=== PATIENT | female | born 1975 | race Caucasian/White ===

== ENCOUNTER → 2016-05-20 | Outpatient (CLI) | payer MEDICARE ==
[~2016-05-20] MED LIST: ACET-654 PO; ACET500C PO; BIOT5TAB3 PO; BUSP10TA PO; CALCTAB37 PO; DULC10SU2 PR; ENEMENE6 PR; GARL350T PO; LOVE1INJ SC; MILKSUS PO; MIRA3350 PO; NICO2GUM8 PO; NUPE1OIN2 TOP; OXYC10TA12 PO; OXYIR PO; PAXI40TA2 PO; PRIL20CA PO; VITA200015 PO; VITAPRTA PO; VITATAB11 PO; XANA0.5T PO; [UNRECOGNIZED DRUG - CODE] PR
[2016-05-20 13:17] LABS: BASO % 0.5 % (0.0-1.0); EOS # 0.1 K/mm3 (0.0-0.50); EOS % 1.3 % (0.0-3.0); LARGE UNSTAINED CELL # 0.1 K/mm3 (0.0-0.4); LARGE UNSTAINED CELL % 1.3 % (0.0-4.0); LYMPH # 1.8 K/mm3 (1.5-4.5); MEAN CORPUSCULAR HEMOGLOBIN 30.9 pg (27.0-33.0); MEAN CORPUSCULAR HGB CONC 33.1 g/dl (32.0-36.5); MEAN CORPUSCULAR VOLUME 93.5 fl (80.0-96.0); MONO # 0.3 K/mm3 (0.0-0.8); MONO % 4.4 % (0.0-5.0); NEUTROPHILS # 3.9 K/mm3 (1.8-7.7); NEUTROPHILS % 63.5 % (36.0-66.0); PLATELET COUNT, AUTOMATED 296 k/mm3 (150-450); RED CELL DISTRIBUTION WIDTH 11.9 % (11.5-14.5); WHITE BLOOD COUNT 6.2 K/mm3 (4.0-10.0)
[2016-05-20 14:22] LABS: ALBUMIN 3.7 GM/DL (3.2-5.2); ALBUMIN/GLOBULIN RATIO 1.03 (1.00-1.93); ALKALINE PHOSPHATASE 104 U/L (45-117); ALT/SGPT 42 U/L (12-78); ANION GAP 8 MEQ/L (8-16); AST/SGOT 16 U/L (15-37); BILIRUBIN,TOTAL 0.3 MG/DL (0.2-1.0); BLOOD UREA NITROGEN 11 MG/DL (7-18); CALCIUM LEVEL 9.1 MG/DL (8.5-10.1); CARBON DIOXIDE LEVEL 29 MEQ/L (21-32); CHLORIDE LEVEL 106 MEQ/L (98-107); CHOLESTEROL LEVEL 185 MG/DL (<200); CREATININE FOR GFR 0.66 MG/DL (0.55-1.02); FREE T4 0.93 NG/DL (0.76-1.46); GLOMERULAR FILTRATION RATE > 60.0 (>60); GLUCOSE, FASTING 94 MG/DL (70-105); POTASSIUM SERUM 4.9 MEQ/L (3.5-5.1); SODIUM LEVEL 143 MEQ/L (136-145); TOTAL PROTEIN 7.3 GM/DL (6.4-8.2); TRIGLYCERIDES LEVEL 143 MG/DL (<150)
== END ==
LOC: M SMT 10:12
PROVIDERS: ATTEND Nurse Practitioner Family
DX: R00.2 Palpitations (principal); I10 Essential (primary) hypertension; Z13.220 Encounter for screening for lipoid disorders

== ENCOUNTER → 2018-03-16 | Outpatient (CLI) | payer MEDICARE ==
[2018-03-16 13:33] LABS: ALBUMIN 3.7 GM/DL (3.2-5.2); ALBUMIN/GLOBULIN RATIO 1.03 (1.00-1.93); ALKALINE PHOSPHATASE 92 U/L (45-117); ALT/SGPT 42 U/L (12-78); ANION GAP 9 MEQ/L (8-16); AST/SGOT 23 U/L (7-37); BILIRUBIN,TOTAL 0.4 MG/DL (0.2-1.0); BLOOD UREA NITROGEN 11 MG/DL (7-18); CALCIUM LEVEL 9.1 MG/DL (8.5-10.1); CARBON DIOXIDE LEVEL 26 MEQ/L (21-32); CHLORIDE LEVEL 103 MEQ/L (98-107); CHOLESTEROL LEVEL 197 MG/DL (<200); CHOLESTEROL RISK RATIO 3.862 (<5); CREATININE FOR GFR 0.63 MG/DL (0.55-1.30); FREE T3 2.5 PG/ML (2.2-4.0); FREE T4 0.92 NG/DL (0.76-1.46); GLOMERULAR FILTRATION RATE > 60.0 (>58); GLUCOSE, FASTING 108 MG/DL (70-100); HDL CHOLESTEROL 51 MG/DL (>40); IRON (FE) 152 UG/DL (50-170); LDL CHOLESTEROL 109 MG/DL (<100); NON-HDL-C 146 MG/DL; POTASSIUM SERUM 4.2 MEQ/L (3.5-5.1); SODIUM LEVEL 138 MEQ/L (136-145); TOTAL PROTEIN 7.3 GM/DL (6.4-8.2); TRIGLYCERIDES LEVEL 184 MG/DL (<150)
[2018-03-16 13:36] LABS: TOTAL 25(OH) VITAMIN D 33.2 NG/ML (30.0-100.0)
[2018-03-16 13:41] LABS: BASO % 0.3 % (0.0-1.0); EOS # 0.2 10^3/uL (0.0-0.50); EOS % 1.8 % (0.0-3.0); HEMATOCRIT 42.7 % (36.0-47.0); HEMOGLOBIN 13.9 g/dl (12.0-15.5); IMMATURE GRANULOCYTE % 0.7 % (0-3.0); LYMPH # 2.2 10^3/uL (1.5-4.5); LYMPH % 22.2 % (24.0-44.0); MEAN CORPUSCULAR HEMOGLOBIN 31.5 pg (27.0-33.0); MEAN CORPUSCULAR HGB CONC 32.6 g/dl (32.0-36.5); MEAN CORPUSCULAR VOLUME 96.8 fl (80.0-96.0); MONO # 0.6 10^3/uL (0.0-0.8); MONO % 5.6 % (0.0-5.0); NEUTROPHILS # 6.8 10^3/uL (1.8-7.7); NEUTROPHILS % 69.4 % (36.0-66.0); PLATELET COUNT, AUTOMATED 318 10^3/uL (150-450); RED BLOOD COUNT 4.41 10^6/uL (4.00-5.40); RED CELL DISTRIBUTION WIDTH 12.4 % (11.5-14.5); WHITE BLOOD COUNT 9.8 10^3/uL (4.0-10.0)
== END ==
LOC: M SMT 09:35
DX: I10 Essential (primary) hypertension (principal); E66.01 Morbid (severe) obesity due to excess calories; E55.9 Vitamin D deficiency, unspecified; Z13.220 Encounter for screening for lipoid disorders
CPT/HCPCS: 83540

== ENCOUNTER → 2018-08-17 | Outpatient (REF) | payer MEDICARE ==
[~2018-08-17] MED LIST changes: -ACET-654 PO; +ACET1TAB55 PO; -CALCTAB37 PO; +CALCTAB63 PO; +MILK120011 PO; -MILKSUS PO; +PAXI40TA10 PO; -PAXI40TA2 PO; -PRIL20CA PO; +PRIL20CA9 PO
[2018-08-19 14:14] LABS: HPV HYBRID CAPTURE II Negative (Negative)
== END ==
LOC: M LAB REF 17:25
PROVIDERS: ATTEND Specialist
DX: Z12.4 Encounter for screening for malignant neoplasm of cervix (principal)
CPT/HCPCS: 87624; G0123

== ENCOUNTER 2018-11-07 22:02 | Emergency (ER) | payer MEDICARE, MEDICAID ==
[~2018-11-07] VITALS: Ht 160 cm; Wt 154.6 kg
[2018-11-07 22:43] LABS: BASO % 0.2 % (0.0-1.0); EOS % 0.3 % (0.0-3.0); HEMATOCRIT 38.9 % (36.0-47.0); HEMOGLOBIN 12.9 g/dl (12.0-15.5); LYMPH # 0.7 10^3/uL (1.5-4.5); LYMPH % 6.8 % (24.0-44.0); MEAN CORPUSCULAR HEMOGLOBIN 30.6 pg (27.0-33.0); MEAN CORPUSCULAR HGB CONC 33.2 g/dl (32.0-36.5); MEAN CORPUSCULAR VOLUME 92.4 fl (80.0-96.0); MONO # 0.7 10^3/uL (0.0-0.8); MONO % 6.7 % (0.0-5.0); NEUTROPHILS # 8.8 10^3/uL (1.8-7.7); NEUTROPHILS % 85.3 % (36.0-66.0); PLATELET COUNT, AUTOMATED 243 10^3/uL (150-450); RED BLOOD COUNT 4.21 10^6/uL (4.00-5.40); WHITE BLOOD COUNT 10.3 10^3/uL (4.0-10.0)
[2018-11-07 22:47] LABS: APPEARANCE, URINE HAZY (CLEAR); BACTERIA, URINE AUTO 1+ (NEGATIVE); BILIRUBIN, URINE AUTO NEGATIVE (NEGATIVE); BLOOD, URINE BLOOD 2+ (NEGATIVE); COLOR, URINE YELLOW (YELLOW); GLUCOSE, URINE (UA) AUTO NEGATIVE (NEGATIVE); KETONE, URINE AUTO 1+ mg/dL (NEGATIVE); LEUKOCYTE ESTERASE, URINE AUTO 2+ (NEGATIVE); NITRITE, URINE AUTO POSITIVE (NEGATIVE); PROTEIN, URINE AUTO NEGATIVE (NEGATIVE); RBC, URINE AUTO 9 /HPF (0-3); SPECIFIC GRAVITY URINE AUTO 1.011 (1.002-1.035); SQUAMOUS EPITHELIAL CELL UR AU 2 /HPF (0-6); UROBILINOGEN, URINE AUTO 0.2 mg/dL (0.0-2.0); WBC, URINE AUTO 79 /HPF (0-3)
[2018-11-07 23:13] LABS: ALBUMIN 3.3 GM/DL (3.2-5.2); ALT/SGPT 28 U/L (12-78); BILIRUBIN,DIRECT 0.1 MG/DL (0.0-0.2); BILIRUBIN,TOTAL 0.4 MG/DL (0.2-1.0); BLOOD UREA NITROGEN 15 MG/DL (7-18); CALCIUM LEVEL 8.8 MG/DL (8.5-10.1); CARBON DIOXIDE LEVEL 24 MEQ/L (21-32); CHLORIDE LEVEL 103 MEQ/L (98-107); CREATININE FOR GFR 0.74 MG/DL (0.55-1.30); GLOMERULAR FILTRATION RATE > 60.0 (>58); GLUCOSE, FASTING 115 MG/DL (70-100); POTASSIUM SERUM 3.7 MEQ/L (3.5-5.1); SODIUM LEVEL 137 MEQ/L (136-145); TOTAL PROTEIN 7.4 GM/DL (6.4-8.2)
[2018-11-07] MEDS ORDERED: BACT800T5 PO (23:24)
[2018-11-07] MEDS ORDERED: BACTRIM 160MG/800MG DS TAB PO ONE (23:30)
[2018-11-07 23:45] VITALS: BP 150/89
== END 2018-11-07 23:43 | disposition home or self-care (01) ==
LOC: M ED 22:02
DX: N39.0 Urinary tract infection, site not specified (principal); D64.9 Anemia, unspecified; E66.01 Morbid (severe) obesity due to excess calories; F41.1 Generalized anxiety disorder; F32.9 Major depressive disorder, single episode, unspecified; Z88.1 Allergy status to other antibiotic agents; Z91.018 Allergy to other foods; Z98.84 Bariatric surgery status

== ENCOUNTER → 2018-12-09 | Outpatient (REF) | payer MEDICARE, MEDICAID ==
[~2018-12-09] MED LIST changes: +BACT800T5 PO
[2018-12-09 15:09] LABS: APPEARANCE, URINE CLEAR (CLEAR); BACTERIA, URINE AUTO NEGATIVE (NEGATIVE); BILIRUBIN, URINE AUTO NEGATIVE (NEGATIVE); BLOOD, URINE BLOOD NEGATIVE (NEGATIVE); COLOR, URINE YELLOW (YELLOW); GLUCOSE, URINE (UA) AUTO NEGATIVE (NEGATIVE); KETONE, URINE AUTO NEGATIVE (NEGATIVE); LEUKOCYTE ESTERASE, URINE AUTO NEGATIVE (NEGATIVE); NITRITE, URINE AUTO NEGATIVE (NEGATIVE); PROTEIN, URINE AUTO NEGATIVE (NEGATIVE); RBC, URINE AUTO 2 /HPF (0-3); SPECIFIC GRAVITY URINE AUTO 1.019 (1.002-1.035); SQUAMOUS EPITHELIAL CELL UR AU 2 /HPF (0-6); UROBILINOGEN, URINE AUTO 0.2 mg/dL (0.0-2.0); WBC, URINE AUTO 1 /HPF (0-3)
== END ==
LOC: M LAB REF 13:23
PROVIDERS: ATTEND Nurse Practitioner Family
DX: N39.0 Urinary tract infection, site not specified (principal)

== ENCOUNTER → 2019-01-14 | Outpatient (CLI) | payer MEDICARE, MEDICAID ==
--- NOTE | 2019-01-14 15:22 | REP ---
Left hip series: Two views. History: Hip pain. Findings: There is severe arthropathy affecting the left hip with axial joint space narrowing, marked hypertrophic spur formation and sclerosis on both sides of the joint. This arthropathy appears to be somewhat more pronounced than on the March 06, [address] study although direct comparison is difficult. Impression: Severe arthropathy affecting the left hip with marked joint space narrowing and osteophyte formation. Reactive sclerosis. Probably progressive since March 06, 2015. Electronically Signed by Orlando Woods MD 01/14/2019 04:05 P
--- NOTE | 2019-01-14 16:05 | REP ---
Lumbar spine series: Five views. History: Hip pain and back pain. Comparison study: November 03, 2014. Findings: Lumbar vertebral body heights are preserved. There is some straightening. There is a degenerative grade 1 4 mm spondylolisthesis at L4-5 due to degenerative disc and facet changes. There is no evidence of spondylolysis. Degenerative disc spurring and sclerosis are also noted and L3-4. There are mild discogenic spurring changes at the thoracolumbar junction and there appears to be mild wedging at T12 unchanged. The visualized sacrum and SI joints are unremarkable. Impression: Degenerative disc and osteoarthritic facet changes as noted above. Mild degenerative grade 1 4 mm L4-5 spondylolisthesis. This is new when compared with prior CT study of November 03, 2014. Electronically Signed by Orlando Woods MD 01/14/2019 03:57 P
== END ==
LOC: M SMT 11:24
PROVIDERS: ATTEND Family Medicine
DX: M25.752 Osteophyte, left hip (principal); M51.36 Other intervertebral disc degeneration, lumbar region; M25.78 Osteophyte, vertebrae

== ENCOUNTER → 2019-01-28 | Outpatient (REF) | payer MEDICARE, MEDICAID ==
[2019-01-28 21:26] LABS: APPEARANCE, URINE HAZY (CLEAR); BACTERIA, URINE AUTO 2+ (NEGATIVE); BILIRUBIN, URINE AUTO NEGATIVE (NEGATIVE); BLOOD, URINE BLOOD NEGATIVE (NEGATIVE); COLOR, URINE YELLOW (YELLOW); GLUCOSE, URINE (UA) AUTO NEGATIVE (NEGATIVE); KETONE, URINE AUTO NEGATIVE (NEGATIVE); LEUKOCYTE ESTERASE, URINE AUTO NEGATIVE (NEGATIVE); MUCUS, URINE SMALL (NEGATIVE); NITRITE, URINE AUTO NEGATIVE (NEGATIVE); PROTEIN, URINE AUTO NEGATIVE (NEGATIVE); RBC, URINE AUTO 1 /HPF (0-3); SPECIFIC GRAVITY URINE AUTO 1.017 (1.002-1.035); SQUAMOUS EPITHELIAL CELL UR AU 5 /HPF (0-6); UROBILINOGEN, URINE AUTO 0.2 mg/dL (0.0-2.0); WBC, URINE AUTO 5 /HPF (0-3)
== END ==
LOC: M LAB REF 09:19
PROVIDERS: ATTEND Physician Assistant
DX: N39.0 Urinary tract infection, site not specified (principal)

== ENCOUNTER 2019-03-17 22:50 | Inpatient (IN) | payer MEDICARE, MEDICAID ==
[~2019-03-17] VITALS: Ht 160 cm; Wt 154.0 kg
[2019-03-17] MEDS ORDERED: NS 1,000 ML IV ONE (23:00)
[2019-03-17] MEDS ORDERED: ACETAMINOPHEN 500 MG TAB PO ONE (23:00)
[2019-03-17] MEDS ORDERED: DULO1CAP6 PO (23:03)
[2019-03-17] MEDS ORDERED: OMEP-218 PO (23:03)
[2019-03-17 23:11] LABS: BASO % 0.3 % (0.0-1.0); EOS % 0.4 % (0.0-3.0); HEMATOCRIT 38.4 % (36.0-47.0); HEMOGLOBIN 12.7 g/dl (12.0-15.5); LYMPH # 0.9 10^3/uL (1.5-5.0); LYMPH % 13.5 % (24.0-44.0); MEAN CORPUSCULAR HEMOGLOBIN 29.8 pg (27.0-33.0); MEAN CORPUSCULAR HGB CONC 33.1 g/dl (32.0-36.5); MEAN CORPUSCULAR VOLUME 90.1 fl (80.0-96.0); MONO # 0.2 10^3/uL (0.0-0.8); MONO % 3.3 % (0.0-5.0); NEUTROPHILS # 5.7 10^3/uL (1.5-8.5); NEUTROPHILS % 82.1 % (36.0-66.0); PLATELET COUNT, AUTOMATED 248 10^3/uL (150-450); RED BLOOD COUNT 4.26 10^6/uL (4.00-5.40); WHITE BLOOD COUNT 6.9 10^3/uL (4.0-10.0)
[2019-03-17 23:33] LABS: ALBUMIN 3.2 GM/DL (3.2-5.2); ALT/SGPT 30 U/L (12-78); BILIRUBIN,TOTAL 0.4 MG/DL (0.2-1.0); BLOOD UREA NITROGEN 10 MG/DL (7-18); CALCIUM LEVEL 8.4 MG/DL (8.5-10.1); CARBON DIOXIDE LEVEL 23 MEQ/L (21-32); CHLORIDE LEVEL 102 MEQ/L (98-107); CREATININE FOR GFR 0.82 MG/DL (0.55-1.30); GLOMERULAR FILTRATION RATE > 60.0 (>58); GLUCOSE, FASTING 116 MG/DL (70-100); POTASSIUM SERUM 3.7 MEQ/L (3.5-5.1); SODIUM LEVEL 136 MEQ/L (136-145)
[2019-03-17 23:41] LABS: BILIRUBIN, URINE MANUAL OBSCURED (NEGATIVE); GLUCOSE, URINE (UA) MANUAL NEGATIVE (NEGATIVE); KETONE, URINE MANUAL 2+ mg/dL (NEGATIVE); UROBILINOGEN, URINE MANUAL OBSCURED mg/dl (NORMAL)
[2019-03-17 23:43] LABS: BACTERIA, URINE SMALL AMOUNT; RBC, URINE TNTC /hpf (0-3); SQUAMOUS EPITHELIAL CELL URINE SMALL AMOUNT /hpf (SMALL AMT)
[2019-03-17 23:44] LABS: HYALINE CAST, URINE NONE SEEN /lpf (0-1)
[2019-03-17 23:45] LABS: MUCUS, URINE SMALL AMOUNT (NEGATIVE)
[2019-03-18] MEDS ORDERED: cefTRIAXone SOD 1 GM in D5W MINI-BAG PLUS 50 ML IV ONE ×2
[2019-03-18 00:29] LABS: INFLUENZA A AMPLIFICATION NEGATIVE (NEGATIVE); INFLUENZA B AMPLIFICATION NEGATIVE (NEGATIVE)
[2019-03-18] MEDS ORDERED: KETOROLAC 30 MG/ML VIAL (J1885) IV PRN (00:30)
[2019-03-18] MEDS ORDERED: PRENTAB9 PO (00:38)
[2019-03-18 02:20] VITALS: BP 114/60
[2019-03-18] MEDS: NS 1,000 ML IV SCH ×2 (02:56→05:43)
[2019-03-18 06:00] VITALS: BP 112/60
[2019-03-18 07:00] LABS: HEMOGLOBIN 11.5 g/dl (12.0-15.5); MEAN CORPUSCULAR HEMOGLOBIN 29.8 pg (27.0-33.0); MEAN CORPUSCULAR HGB CONC 32.9 g/dl (32.0-36.5); MEAN CORPUSCULAR VOLUME 90.7 fl (80.0-96.0); PLATELET COUNT, AUTOMATED 234 10^3/uL (150-450); RED BLOOD COUNT 3.86 10^6/uL (4.00-5.40); WHITE BLOOD COUNT 6.1 10^3/uL (4.0-10.0)
[2019-03-18 07:19] LABS: BLOOD UREA NITROGEN 6 MG/DL (7-18); CARBON DIOXIDE LEVEL 22 MEQ/L (21-32); CHLORIDE LEVEL 111 MEQ/L (98-107); CREATININE FOR GFR 0.57 MG/DL (0.55-1.30); GLOMERULAR FILTRATION RATE > 60.0 (>58); GLUCOSE, FASTING 110 MG/DL (70-100); POTASSIUM SERUM 3.4 MEQ/L (3.5-5.1); SODIUM LEVEL 140 MEQ/L (136-145)
--- NOTE | 2019-03-18 07:54 | REP ---
Clinical: Fever . Comparison: 05/24/2013 . Technique: PA and lateral. Findings: The mediastinum and cardiac silhouette are normal. The lung cyr are clear and without acute consolidation, effusion, or pneumothorax. The skeletal structures are intact and normal. Impression: 1. No acute cardiopulmonary process. Electronically Signed by Gustabo Ash MD 03/18/2019 07:45 A
--- NOTE | 2019-03-18 08:02 | HPE ---
DATE OF ADMISSION: 03/18/2019 CHIEF COMPLAINT: Chills. HISTORY OF PRESENT ILLNESS: 43-year-old female with history of morbid obesity, BMI of 60, probable sleep apnea, gastric bypass surgery presents with history of malaise with no documented fever until 9:00 p.m. this evening when she came back home from trick or treating she complained of severe chills and rigors and vomiting, non-bilious, non-projectile, with urinary frequency. The patient denies any dysuria, any urgency, complains of frequency, she had a similar episode before when she was diagnosed with a urinary tract infection (UTI), at that time she was disoriented and not herself. She complains of pain in bilateral flank, decrease in appetite. Home temperature was 100. She called an ambulance and was found to have a fever of 103 and was brought in to the emergency room. White count was normal. Chest x-ray was negative. Urinalysis showed positive bacteria 20-30 WBCs, turbid in appearance, pH of 5. Hospitalist was called to admit for sepsis secondary to urinary tract infection. She was febrile at 103, pulse 113, respiratory 24. PAST MEDICAL HISTORY: Urinary tract infection (UTI), morbid obesity, BMI of 61, probable obstructive sleep apnea, Legg-Perthes disease. PAST SURGICAL HISTORY: Pin in the hip, dilatation and curettage (D C), gastric bypass, hip replacement. ALLERGIES: DEMEROL causing hives. HOME MEDICATIONS: - duloxetine 60 mg at bedtime - omeprazole 20 mg at bedtime - vitamin SOCIAL HISTORY: Previously smoked cigarettes, less than a half a pack per day for about 4-5 years, has not had any cigarettes in over 3 years. Rarely uses any alcohol. Lives with her and two children. Currently on disability, previously worked in [employer]. FAMILY HISTORY: Mother and father are alive in well, age 67. Mother had gastric bypass surgery. Father alive and well. She has one younger sister and one younger brother. Younger sister had an episode of vasovagal syncope. Younger brother had hypertension and borderline diabetes. REVIEW OF SYSTEMS: Per history of present illness, twelve point system otherwise negative. PHYSICAL EXAMINATION: Temperature 103, pulse 113, respiratory rate 24, blood pressure 133/67. GENERALLY: Patient is awake, alert, and oriented times three, answering questions appropriately. Pupils round and reactive, extraocular muscles are intact. Normocephalic, atraumatic. No cyanosis. No icterus or jaundice. Neck is supple, full of range motion. Dry mucous membranes. No supraclavicular lymphadenopathy or thyromegaly. No jugular venous distention. Lung are clear to auscultation. No wheezing, rales, or rhonchi. Heart S1, S2, sinus tachycardia. No murmurs, rubs, or gallops. Abdomen is obese, soft, nontender, nondistended. Positive bowel sounds. No CVA tenderness. Extremities no cyanosis, clubbing, or pitting edema. LABORATORY DATA: White count 6.9, hemoglobin 12, hematocrit 38, bilirubin count 248, sodium 136, potassium 3.7, chloride 102, bicarbonate 23, BUN 10, creatinine 0.82, glucose 116, lactic acid 1.9, calcium 8.4, total bilirubin 0.4, AST 19, ALT 30, alkaline phosphatase 107, albumin 3.2. MICROBIOLOGY: Urine and blood cultures are pending. Chest x-ray - unavailable report. ASSESSMENT AND PLAN: This is a 43-year-old female, morbid obesity, history of gastric bypass surgery, BMI of 60, probably obstructive sleep apnea presents to the emergency room with acute onset of vomiting, fever of 103, found to have a urinary tract infection. Active issues are as follows: - Sepsis secondary to urinary tract infection. Has received IV ceftriaxone every 24 hours, normal saline bolus and maintenance fluids, Tylenol for pain, ovoid opioids due to her increased risks of hypercapnic respiratory failure in light of morbid obesity and probably obstructive sleep apnea. - Morbid obesity. BMI of 60.1. At risk for obstructive sleep apnea. Check a nocturnal oxymetry. Avoids sedatives, hypnotics, and opioid use. Check for lipid panel, TSH and A1c in the morning to rule out metabolic syndrome. - History of Legg-Perthes disease. Status post hip replacement and pin placed in the hip, early ambulation. - Prior history of smoking. Patient has not smoked in several years. - History of gastric bypass surgery. No current complaints of dyspepsia.
[2019-03-18] MEDS ORDERED: POTASSIUM CHLORIDE 10 MEQ SR TABLET PO ONE (08:45)
[2019-03-18 08:57] LABS: MAGNESIUM LEVEL 1.9 MG/DL (1.8-2.4)
[2019-03-18] MEDS: ACETAMINOPHEN TAB 650MG DOSE (2X325MG) PO PRN ×2 (11:12→19:39)
--- NOTE | 2019-03-18 13:56 | IPNPDOC ---
Text Note Date of Service The patient was seen on 03/18/19. NOTE Subjective: -Feels much better this morning, had been aching for day and finally came in after emesis -Reports that this is her third UTI this year Objective: Vitals: see below. Afebrile and normotensive General: Morbidly obese, awake, alert, AOx3 HEENT: NCAT, EOMI, PERRLA, MMM Neck: supple, no JVD or palpable adenopathy Pulm: CTAB, no wheezing, rales, or rhonchi. Cardiac: RRR, normal S1, S2, with no murmurs, rubs, or gallops. Abdomen: morbidly obese, normoactive bowel sounds, soft, nontender, nondistended. No CVA tenderness. Extremities: WWP, no pitting edema. LABORATORY DATA: reviewed MICROBIOLOGY: Urine and blood cultures are still pending. 03/17: Chest x-ray - No acute cardiopulmonary process. Assessment: 43-year-old woman with morbid obesity, history of gastric bypass surgery, likely SAMMI who presented with acute N/V reporting days of feeling achy and unwell and found to have a urinary tract infection. Sepsis secondary to urinary tract infection. -Most recently urine cultures grew E.coli sensitive to ceftriaxone, continue IV ceftriaxone until culture results with sensitivities -s/p IV fluids bolus, currently on maintenance fluids, will check PO intake and likely discontinue Morbid obesity. BMI of 60.1. At risk for obstructive sleep apnea. -s/p prior gastric bypass but eventually gained weight back. -Will need STOPBANG and likely sleep study referral as an outpatient -For now will avoids sedatives, hypnotics, and opioid use. History of Legg-Perthes disease. s/p hip replacement and pin placed in the hip, early ambulation. DVT prophylaxis: lovenox 40 QD VS,Fishbone, I+O VS, Fishbone, I+O Laboratory Tests 03/17/19 23:03 03/18/19 06:46 Vital Signs Date Time Temp Pulse Resp B/P (MAP) Pulse Ox O2 Delivery O2 Flow Rate FiO2 03/18/19 06:00 96.4 79 20 112/60 (77) 98 Room Air I&O- Last 24 Hours up to 6 AM 03/18/19 06:00 Intake Total 1850 ml Output Total 0 ml Balance 1850 ml DAIANA AGUIRRE MD Mar 18, 2019 13:56
[2019-03-18 15:03] VITALS: BP 112/62
[2019-03-18] MEDS ORDERED: ENOXAPARIN 40 MG/0.4 ML SYRINGE (J1650) SC SCH (21:00)
[2019-03-18] MEDS ORDERED: cefTRIAXone SOD 1 GM in D5W MINI-BAG PLUS 50 ML IV SCH (21:00)
[2019-03-18 22:00] VITALS: BP 143/68
[2019-03-19 06:00] VITALS: BP_SYST 125; BP_SYST 143; BP_DIAS 66; BP_DIAS 68
[2019-03-19 06:58] LABS: HEMATOCRIT 36.8 % (36.0-47.0); HEMOGLOBIN 11.9 g/dl (12.0-15.5); MEAN CORPUSCULAR HEMOGLOBIN 29.5 pg (27.0-33.0); MEAN CORPUSCULAR HGB CONC 32.3 g/dl (32.0-36.5); MEAN CORPUSCULAR VOLUME 91.1 fl (80.0-96.0); PLATELET COUNT, AUTOMATED 261 10^3/uL (150-450); RED BLOOD COUNT 4.04 10^6/uL (4.00-5.40); WHITE BLOOD COUNT 5.7 10^3/uL (4.0-10.0)
[2019-03-19 07:25] LABS: BLOOD UREA NITROGEN 5 MG/DL (7-18); CALCIUM LEVEL 8.3 MG/DL (8.5-10.1); CARBON DIOXIDE LEVEL 22 MEQ/L (21-32); CHLORIDE LEVEL 108 MEQ/L (98-107); CREATININE FOR GFR 0.64 MG/DL (0.55-1.30); GLOMERULAR FILTRATION RATE > 60.0 (>58); GLUCOSE, FASTING 109 MG/DL (70-100); POTASSIUM SERUM 3.6 MEQ/L (3.5-5.1); SODIUM LEVEL 137 MEQ/L (136-145)
[2019-03-19] MEDS: ACETAMINOPHEN TAB 650MG DOSE (2X325MG) PO PRN (07:54)
[2019-03-19] MEDS ORDERED: CEPHALEXIN 500 MG CAP PO SCH (09:00)
[2019-03-19] MEDS ORDERED: POTASSIUM CHLORIDE 10 MEQ SR TABLET PO ONE (09:00)
[2019-03-19] MEDS ORDERED: INFLUENZA QUADRIVALENT PF VACCINE 0.5ML SYRINGE (90686) IM ONE (09:00)
[2019-03-19] MEDS ORDERED: CEPH500C PO (13:08)
[2019-03-19 14:00] VITALS: BP 121/75
--- NOTE | 2019-03-19 14:43 | DS.PDOC ---
Discharge Summary General Date of Admission Mar 18, 2019 at 00:28 Date of Discharge 03/19/2019 Attending Physician: DAIANA AGUIRRE MD Discharge Summary PROCEDURES PERFORMED DURING STAY: None ADMITTING DIAGNOSES: 1. UTI DISCHARGE DIAGNOSES: 1. Acute uncomplicated cystitis 2. Morbid obesity COMPLICATIONS/CHIEF COMPLAINT: UTI. HISTORY OF PRESENT ILLNESS: 43-year-old woman with severe morbid obesity, BMI 60.1, history of gastric bypass surgery, probably obstructive sleep apnea who presented to the emergency room with acute onset of vomiting. HOSPITAL COURSE: In the ED, she had a fever of 103, tachycardia and normotensive and found to have a urinary tract infection on initial workup. She reported a recent history of a UTI in 01/2019 for which she was treated with an antibiotic she did not remember the name with resolution of her acute symptoms of generalized weakness of bony pain. She had a +UA and a urine culture was sent and she was started on empiric ceftriaxone and IV fluids with resolution of her nausea, emesis and generalized aching. Per prior records, her prior UTIs were secondary to pansensitve E.coli. Her urine culture was ultimately negative and r ecorded as contaminated and without speciation and sensitivities and the prompt response to ceftriaxone, she was switched to keflex 500mg BID with a plan for a 7day course. She is now being discharged home to complete the Keflex course with PCP follow up. DISCHARGE MEDICATIONS: Please see below. ALLERGIES: Please see below. PHYSICAL EXAMINATION ON DISCHARGE: VITAL SIGNS: Please see below. General: Morbidly obese, awake, alert, AOx3 HEENT: NCAT, EOMI, PERRLA, MMM Neck: supple, no JVD or palpable adenopathy Pulm: CTAB, no wheezing, rales, or rhonchi. Cardiac: RRR, normal S1, S2, with no murmurs, rubs, or gallops. Abdomen: morbidly obese, normoactive bowel sounds, soft, nontender, nondis tended. No CVA tenderness. Extremities: WWP, no pitting edema. LABORATORY DATA: Please see below. IMAGIN/31: CXR: No acute cardiopulmonary process. PROGNOSIS: Good ACTIVITY: As tolerated DIET: Regular DISCHARGE PLAN: Home to complete 6 more day of Keflex. DISPOSITION: Home DISCHARGE INSTRUCTIONS: 1. Please complete the 6 days of twice daily keflex and follow up with your PCP. ITEMS TO FOLLOWUP ON OUTPATIENT: 1. UTI DISCHARGE CONDITION: Stable. TIME SPENT ON DISCHARGE: Greater than 32 minutes. Vital Signs/I&Os Vital Signs Date Time Temp Pulse Resp B/P (MAP) Pulse Ox O2 Delivery O2 Flow Rate FiO2 03/19/19 06:00 99.1 84 18 125/66 (85) 98 Room Air I&O- Last 24 Hours up to 6 AM 03/19/19 06:00 Intake Total 1560 ml Output Total 1200 ml Balance 360 ml Laboratory Data Labs 24H Laboratory Tests 2 03/19/19 06:35: Nucleated Red Blood Cells % (auto) 0.0, Anion Gap 7L, Glomerular Filtration Rate > 60.0, Calcium Level 8.3L CBC/BMP Laboratory Tests 03/19/19 06:35 Microbiology Microbiology 03/18/19 Blood Culture - Preliminary, Resulted No growth after 24 hours . All specim... 03/17/19 Urine Culture - Final, Complete 03/17/19 Blood Culture - Preliminary, Resulted No growth after 24 hours . All specim... Discharge Medications Scheduled Cephalexin (Cephalexin) 500 Mg Capsule, 500 MG PO BID Duloxetine Hcl (Duloxetine HCl) 60 Mg Capsule.dr, 60 MG PO QHS, (Reported) Omeprazole (Omeprazole) 20 Mg Capsule.dr, 20 MG PO QHS, (Reported) No.137/Iron/Folic Acd ( Vitamin Tablet) 1 Each Tablet, 1 TAB PO QHS, (Reported) Allergies Coded Allergies: Shoshoni And Derivatives (Verified Allergy, Unknown, swelling, 03/17/19) HAY FEVER (Verified Allergy, Unknown, 03/17/19) SEASONAL ALLERGIES (Verified Allergy, Unknown, 03/17/19) bacitracin (Verified Allergy, Unknown, swelling, 03/17/19) meperidine (Verified Allergy, Unknown, hives, 03/17/19) DAIANA AGUIRRE MD Mar 19, 2019 14:43
--- NOTE | 2019-03-21 09:52 | NOCOX ---
DATE OF STUDY: 03/18/2019 into 03/19/2019 ORDERED BY: Dr. Casillas The study was performed on room air. Study of excellent technical quality. Mean oxygen saturation for the study 95.8%. Significant periods of variability are identified in a pattern strongly suggesting underlying obstructive sleep apnea syndrome. Most reliably recorded saturation approximately 78%. IMPRESSION: Abnormal nocturnal oximetry suggesting underlying obstructive sleep apnea (SAMMI). Please correlate clinically.
== END 2019-03-19 15:40 | disposition home or self-care (01) | DRG 872 ==
LOC: M ED 22:50 → M ED INP 03-18 00:28 → M MS5PR 03-18 01:41
PROVIDERS: ADMIT General Practice; ATTEND Internal Medicine
DX: A41.9 Sepsis, unspecified organism (principal); N39.0 Urinary tract infection, site not specified; Z68.44 Body mass index [BMI] 60.0-69.9, adult; E66.01 Morbid (severe) obesity due to excess calories; M91.10 Juvenile osteochondrosis of head of femur [Legg-Calve-Perthes], unspecified leg; G47.33 Obstructive sleep apnea (adult) (pediatric); B96.29 Other Escherichia coli [E. coli] as the cause of diseases classified elsewhere; Z79.899 Other long term (current) drug therapy; Z88.8 Allergy status to other drugs, medicaments and biological substances; Z87.891 Personal history of nicotine dependence; Z96.649 Presence of unspecified artificial hip joint

== ENCOUNTER → 2019-05-30 | Outpatient (REF) | payer MEDICARE, MEDICAID ==
[~2019-05-30] MED LIST changes: +CEPH500C PO; +DULO1CAP6 PO; +OMEP-218 PO; +PRENTAB9 PO
[2019-05-30 18:40] LABS: APPEARANCE, URINE HAZY (CLEAR); BACTERIA, URINE AUTO NEGATIVE (NEGATIVE); BILIRUBIN, URINE AUTO NEGATIVE (NEGATIVE); BLOOD, URINE BLOOD NEGATIVE (NEGATIVE); COLOR, URINE YELLOW (YELLOW); GLUCOSE, URINE (UA) AUTO NEGATIVE (NEGATIVE); KETONE, URINE AUTO NEGATIVE (NEGATIVE); LEUKOCYTE ESTERASE, URINE AUTO NEGATIVE (NEGATIVE); MUCUS, URINE SMALL (NEGATIVE); NITRITE, URINE AUTO NEGATIVE (NEGATIVE); PROTEIN, URINE AUTO NEGATIVE (NEGATIVE); RBC, URINE AUTO 1 /HPF (0-3); SQUAMOUS EPITHELIAL CELL UR AU 7 /HPF (0-6); UROBILINOGEN, URINE AUTO 0.2 mg/dL (0.0-2.0); WBC, URINE AUTO 2 /HPF (0-3)
== END ==
LOC: M SMT 17:12
PROVIDERS: ATTEND Nurse Practitioner Women's Health
DX: Z87.440 Personal history of urinary (tract) infections (principal); Z79.899 Other long term (current) drug therapy
CPT/HCPCS: 51798; 81001; 87086; G0463

== ENCOUNTER → 2019-06-09 | Outpatient (REF) | payer MEDICARE, MEDICAID ==
[2019-06-09 13:52] LABS: APPEARANCE, URINE CLOUDY (CLEAR); BACTERIA, URINE AUTO 3+ (NEGATIVE); BILIRUBIN, URINE AUTO NEGATIVE (NEGATIVE); BLOOD, URINE BLOOD 2+ (NEGATIVE); COLOR, URINE YELLOW (YELLOW); GLUCOSE, URINE (UA) AUTO NEGATIVE (NEGATIVE); KETONE, URINE AUTO NEGATIVE (NEGATIVE); LEUKOCYTE ESTERASE, URINE AUTO 2+ (NEGATIVE); MUCUS, URINE SMALL (NEGATIVE); NITRITE, URINE AUTO POSITIVE (NEGATIVE); PROTEIN, URINE AUTO NEGATIVE (NEGATIVE); RBC, URINE AUTO 10 /HPF (0-3); SPECIFIC GRAVITY URINE AUTO 1.016 (1.002-1.035); SQUAMOUS EPITHELIAL CELL UR AU 1 /HPF (0-6); UROBILINOGEN, URINE AUTO 0.2 mg/dL (0.0-2.0); WBC, URINE AUTO TNTC /HPF (0-3)
== END ==
LOC: M SMT 12:57
PROVIDERS: ATTEND Nurse Practitioner Women's Health
DX: R30.0 Dysuria (principal)

== ENCOUNTER → 2019-06-13 | Outpatient (CLI) | payer MEDICARE, MEDICAID ==
--- NOTE | 2019-06-13 18:32 | REP ---
Renal ultrasound: The right kidney measures 11.4 x 4.8 x 5.0 cm. The left kidney measures 10.9 x 4.5 x 5.1 cm. The kidneys are normal size. Renal cortical echogenicity is normal bilaterally. There are no renal calculi. There is no hydronephrosis. There are no solid or cystic renal masses. Impression: Negative renal ultrasound. Electronically Signed by Dion Pickard MD 06/13/2019 06:23 P
--- NOTE | 2019-06-13 18:33 | REP ---
Bladder ultrasound: The distended urinary bladder contains 387.6 ml. The postvoid bladder contains a 10.8 ml. The postvoid residual is 3%. No bladder wall masses or polyps or cysts are identified. Electronically Signed by Dion Pickard MD 06/13/2019 06:25 P
== END ==
LOC: M RAD 16:57
PROVIDERS: ATTEND Nurse Practitioner Women's Health
DX: Z87.440 Personal history of urinary (tract) infections (principal)

== ENCOUNTER → 2019-09-15 | Outpatient (REF) | payer MEDICARE, MEDICAID | LOC: M SMT 18:15 | PROVIDERS: ATTEND Nurse Practitioner Family | DX: R30.0 Dysuria (principal) ==

== ENCOUNTER 2019-10-08 14:15 | Emergency (ER) | payer MEDICARE, MEDICAID ==
[~2019-10-08] VITALS: Ht 160 cm; Wt 154.6 kg
[2019-10-08] MEDS ORDERED: NAPR250T4 PO (14:40)
[2019-10-08] MEDS ORDERED: Medical Marijuana (14:40)
[2019-10-08] MEDS ORDERED: TRAM50TA2 PO (14:40)
[2019-10-08] MEDS ORDERED: CYCL-707 PO (14:40)
[2019-10-08] MEDS ORDERED: PERCOCET 5MG/325MG TAB PO ONE (15:15)
[2019-10-08] MEDS ORDERED: PERC5TAB12 PO (16:50)
[2019-10-08 17:03] VITALS: BP 158/77
--- NOTE | 2019-10-11 11:06 | REP ---
REASON FOR EXAM: Chronic pain. COMPARISON: 01/14/2019. There is no significant change compared to the prior exam. There is a minimal L4 upon L5 spondylolisthesis status quo. Partial syndesmophyte formation is again seen bilaterally at L3-4 and L4-5 status quo. There is no significant change in the appearance of vertebral body height or alignment. Degenerative facet joint changes are again seen at every level bilaterally. Pedicles are intact bilaterally. IMPRESSION: Stable appearing chronic changes. Electronically Signed by Ranjan Souza DO 10/11/2019 12:26 P
--- NOTE | 2019-10-11 11:07 | REP ---
REASON: Pain and swelling. Preliminary report given by Dr. Ash. TECHNIQUE: Multiple ultrasonographic images of the deep venous structures of the left thigh were obtained from the common femoral vein to the popliteal vein along with Doppler interrogation and color flow Doppler images. FINDINGS: There is no abnormal echogenic material seen within any of the visualized deep venous structures that would suggest acute thrombosis. Coaptation is unremarkable throughout. Doppler interrogation shows an expected response to respiratory variability and augmentation. The color flow images show what appears to be a normal vascular pattern throughout. IMPRESSION: There is no ultrasonographic evidence of deep venous thrombosis involving any of the visualized deep venous structures of the left thigh, as described above. Electronically Signed by Ranjan Souza DO 10/11/2019 12:26 P
--- NOTE | 2019-10-26 07:08 | REP ---
Clinical: Acute left hip pain. Technique: Neutral and frog lateral views of the left hip. Findings: Advanced degenerative changes include sclerosis and osteophyte formation involving the entire acetabulum with extended coverage of the femoral head/neck region and associated joint space narrowing. No obvious acute fracture dislocation appreciated. Impression: Advanced degenerative changes of the left hip. No acute fracture or dislocation. Electronically Signed by Gustabo Ash MD 10/26/2019 06:59 A
== END 2019-10-08 17:08 | disposition home or self-care (01) ==
LOC: M ED 14:15
DX: M54.16 Radiculopathy, lumbar region (principal); M79.662 Pain in left lower leg; M16.12 Unilateral primary osteoarthritis, left hip; Z88.1 Allergy status to other antibiotic agents; Z88.8 Allergy status to other drugs, medicaments and biological substances; Z91.018 Allergy to other foods; J30.1 Allergic rhinitis due to pollen; Z98.84 Bariatric surgery status; Z79.891 Long term (current) use of opiate analgesic; Z79.899 Other long term (current) drug therapy

== ENCOUNTER → 2019-12-02 | Outpatient (REF) | payer MEDICARE, MEDICAID ==
[~2019-12-02] MED LIST changes: +CYCL-707 PO; +Medical Marijuana; +NAPR250T4 PO; +PERC5TAB12 PO; +TRAM50TA2 PO
[2019-12-02 18:55] LABS: APPEARANCE, URINE HAZY (CLEAR); BACTERIA, URINE AUTO NEGATIVE (NEGATIVE); BILIRUBIN, URINE AUTO NEGATIVE (NEGATIVE); BLOOD, URINE BLOOD 1+ (NEGATIVE); COLOR, URINE YELLOW (YELLOW); GLUCOSE, URINE (UA) AUTO NEGATIVE (NEGATIVE); KETONE, URINE AUTO NEGATIVE (NEGATIVE); LEUKOCYTE ESTERASE, URINE AUTO 2+ (NEGATIVE); MUCUS, URINE SMALL (NEGATIVE); NITRITE, URINE AUTO NEGATIVE (NEGATIVE); PROTEIN, URINE AUTO NEGATIVE (NEGATIVE); RBC, URINE AUTO 5 /HPF (0-3); SQUAMOUS EPITHELIAL CELL UR AU 1 /HPF (0-6); UROBILINOGEN, URINE AUTO 0.2 mg/dL (0.0-2.0); WBC, URINE AUTO 47 /HPF (0-3)
== END ==
LOC: M SMT 17:01
PROVIDERS: ATTEND Nurse Practitioner Family
DX: N39.0 Urinary tract infection, site not specified (principal)

== ENCOUNTER → 2020-03-02 | Outpatient (REF) | payer MEDICARE, MEDICAID ==
[2020-03-02 18:52] LABS: AMORPHOUS SEDIMENT SMALL (NEGATIVE); APPEARANCE, URINE HAZY (CLEAR); BACTERIA, URINE AUTO NEGATIVE (NEGATIVE); BILIRUBIN, URINE AUTO NEGATIVE (NEGATIVE); BLOOD, URINE BLOOD 3+ (NEGATIVE); COLOR, URINE YELLOW (YELLOW); GLUCOSE, URINE (UA) AUTO NEGATIVE (NEGATIVE); KETONE, URINE AUTO NEGATIVE (NEGATIVE); LEUKOCYTE ESTERASE, URINE AUTO TRACE (NEGATIVE); NITRITE, URINE AUTO NEGATIVE (NEGATIVE); PROTEIN, URINE AUTO NEGATIVE (NEGATIVE); RBC, URINE AUTO 7 /HPF (0-3); SPECIFIC GRAVITY URINE AUTO 1.009 (1.002-1.035); SQUAMOUS EPITHELIAL CELL UR AU 2 /HPF (0-6); UROBILINOGEN, URINE AUTO 0.2 mg/dL (0.0-2.0); WBC, URINE AUTO 7 /HPF (0-3)
== END ==
LOC: M SMT 17:03
PROVIDERS: ATTEND Nurse Practitioner Women's Health
DX: N39.0 Urinary tract infection, site not specified (principal)

== ENCOUNTER → 2020-04-19 | Outpatient (REF) | payer MEDICARE, MEDICAID ==
[2020-04-19 17:04] LABS: APPEARANCE, URINE CLOUDY (CLEAR); BACTERIA, URINE AUTO 1+ (NEGATIVE); BILIRUBIN, URINE AUTO NEGATIVE (NEGATIVE); BLOOD, URINE BLOOD NEGATIVE (NEGATIVE); COLOR, URINE YELLOW (YELLOW); GLUCOSE, URINE (UA) AUTO NEGATIVE (NEGATIVE); KETONE, URINE AUTO NEGATIVE (NEGATIVE); LEUKOCYTE ESTERASE, URINE AUTO 1+ (NEGATIVE); MUCUS, URINE SMALL (NEGATIVE); NITRITE, URINE AUTO POSITIVE (NEGATIVE); PROTEIN, URINE AUTO NEGATIVE (NEGATIVE); RBC, URINE AUTO 1 /HPF (0-3); SPECIFIC GRAVITY URINE AUTO 1.023 (1.002-1.035); SQUAMOUS EPITHELIAL CELL UR AU 11 /HPF (0-6); UROBILINOGEN, URINE AUTO 0.2 mg/dL (0.0-2.0); WBC, URINE AUTO 38 /HPF (0-3)
== END ==
LOC: M LAB REF 16:21
PROVIDERS: ATTEND Physician Assistant
DX: N39.0 Urinary tract infection, site not specified (principal)

== ENCOUNTER → 2020-07-26 | Outpatient (CLI) | payer MEDICARE, MEDICAID ==
[~2020-07-26] MED LIST changes: +NAPR-849 PO; -NAPR250T4 PO
[2020-07-26 14:35] LABS: HEMATOCRIT 38.3 % (36.0-47.0); HEMOGLOBIN 12.2 g/dl (12.0-15.5); MEAN CORPUSCULAR HEMOGLOBIN 29.4 pg (27.0-33.0); MEAN CORPUSCULAR HGB CONC 31.9 g/dl (32.0-36.5); MEAN CORPUSCULAR VOLUME 92.3 fl (80.0-96.0); PLATELET COUNT, AUTOMATED 355 10^3/uL (150-450); RED BLOOD COUNT 4.15 10^6/uL (4.00-5.40); WHITE BLOOD COUNT 8.6 10^3/uL (4.0-10.0)
[2020-07-26 14:59] LABS: ALBUMIN 3.5 GM/DL (3.2-5.2); ALT/SGPT 37 U/L (12-78); BILIRUBIN,TOTAL 0.2 MG/DL (0.2-1.0); BLOOD UREA NITROGEN 13 MG/DL (7-18); CALCIUM LEVEL 9.1 MG/DL (8.5-10.1); CARBON DIOXIDE LEVEL 29 MEQ/L (21-32); CHLORIDE LEVEL 105 MEQ/L (98-107); CREATININE FOR GFR 0.72 MG/DL (0.55-1.30); GLOMERULAR FILTRATION RATE > 60.0 (>58); GLUCOSE, FASTING 104 MG/DL (70-100); IRON (FE) 46 UG/DL (50-170); PERCENT SATURATION 10.5 % (13.2-45.0); SODIUM LEVEL 138 MEQ/L (136-145); TOTAL IRON BINDING CAPACITY 440 UG/DL (250-450); TOTAL PROTEIN 7.2 GM/DL (6.4-8.2)
[2020-07-26 15:15] LABS: TOTAL 25(OH) VITAMIN D 25.4 NG/ML (30.0-100.0)
[2020-07-26 15:16] LABS: FOLATE 16.9 NG/ML; VITAMIN B12 LEVEL 514 PG/ML
== END ==
LOC: M PLALAB 13:03
PROVIDERS: ATTEND Family Medicine
DX: Z98.84 Bariatric surgery status (principal); Z79.899 Other long term (current) drug therapy

== ENCOUNTER 2020-12-10 03:37 | Emergency (ER) | payer MEDICARE, MEDICAID ==
[~2020-12-10] VITALS: Ht 160 cm; Wt 166.9 kg
[2020-12-10] MEDS ORDERED: ONDANSETRON 4MG/2ML VIAL As Ordered ONE (03:54)
[2020-12-10] MEDS ORDERED: MORPHINE 4 MG/ML 1ML VIAL/SYRINGE (J2270) As Ordered ONE (03:54)
[2020-12-10] MEDS ORDERED: MORPHINE 4 MG/ML 1ML VIAL/SYRINGE (J2270) IV ONE (04:00)
[2020-12-10] MEDS ORDERED: ONDANSETRON 4MG/2ML VIAL IV ONE (04:00)
[2020-12-10] MEDS ORDERED: fentaNYL 100 MCG/2 ML INJECTION (J3010) IV ONE (04:35)
--- NOTE | 2020-12-10 05:24 | REPVR ---
PROCEDURE INFORMATION: Exam: XR Left Shoulder Exam date and time: 12/10/2020 4:13 AM Age: 45 years old Clinical indication: Pain; Shoulder; Left; Additional info: Fall injury TECHNIQUE: Imaging protocol: XR Left shoulder. Views: 2 or more views. COMPARISON: CR SHOULDER COMPLETE 07/29/2014 4:26 PM FINDINGS: Bones/joints: There is an anterior inferior dislocation of the humeral head at the glenohumeral joint. No gross fracture is identified, but assessment of the fine bone detail is somewhat limited. Degenerative changes are seen at the acromioclavicular joint. Soft tissues: Unremarkable. IMPRESSION: Anterior inferior dislocation of the shoulder. Electronically signed by: Raine Cantor On 12/10/2020 05:24:08 AM
--- NOTE | 2020-12-10 05:27 | REPVR ---
PROCEDURE INFORMATION: Exam: XR Left Forearm Exam date and time: 12/10/2020 5:06 AM Age: 45 years old Clinical indication: Pain; Lower or forearm; Left; Additional info: Trauma TECHNIQUE: Imaging protocol: XR Left forearm. Views: 2 views. COMPARISON: No relevant prior studies available. FINDINGS: Bones/joints: There is no evidence of acute fracture or dislocation. There appear to be mild degenerative changes at the elbow, with osteophytes at the ulnotrochlear articulation, but not optimally assessed on this exam. Soft tissues: Multiple rounded calcifications within the dorsal soft tissues in the forearm are probably phleboliths. IMPRESSION: No acute bony abnormality identified. Electronically signed by: Raine Cantor On 12/10/2020 05:26:35 AM
--- NOTE | 2020-12-10 05:28 | REPVR ---
PROCEDURE INFORMATION: Exam: XR Left Humerus Exam date and time: 12/10/2020 5:06 AM Age: 45 years old Clinical indication: Pain; Upper arm; Left; Additional info: Trauma TECHNIQUE: Imaging protocol: XR Left humerus. Views: 2 or more views. COMPARISON: CR Shoulder, complete LEFT 12/10/2020 4:03 AM FINDINGS: Limitations: Examination is limited related to patient positioning and body habitus. Bones/joints: No acute fracture is identified. The shoulder was not fully assessed on this exam, but the anterior inferior dislocation of the humeral head seen previously has been reduced. Soft tissues: Unremarkable. IMPRESSION: Somewhat limited exam but no evidence of fracture. Electronically signed by: Raine Cantor On 12/10/2020 05:28:23 AM
--- NOTE | 2020-12-10 05:31 | REPVR ---
PROCEDURE INFORMATION: Exam: XR Left Shoulder Exam date and time: 12/10/2020 5:06 AM Age: 45 years old Clinical indication: Pain; Shoulder; Left; Patient HX: Post reduction; Additional info: Placement TECHNIQUE: Imaging protocol: XR Left shoulder. Views: 1 view. COMPARISON: CR Shoulder, complete LEFT 12/10/2020 4:03 AM FINDINGS: Bones/joints: There has been reduction of the previously seen anterior inferior dislocation of the shoulder. No displaced fractures are identified. Assessment for small or nondisplaced fractures of the humeral head and glenoid is limited on this single view. Soft tissues: Unremarkable. IMPRESSION: Interval reduction of the previously seen dislocation of the shoulder. Electronically signed by: Raine Cantor On 12/10/2020 05:31:15 AM
[2020-12-10 05:37] VITALS: BP 138/84
== END 2020-12-10 05:56 | disposition home or self-care (01) ==
LOC: M ED 03:37
DX: S43.035A Inferior dislocation of left humerus, initial encounter (principal); W06.XXXA Fall from bed, initial encounter; Y92.9 Unspecified place or not applicable; Y93.9 Activity, unspecified; Y99.8 Other external cause status; M19.90 Unspecified osteoarthritis, unspecified site
CPT/HCPCS: 23650; 73020; 73030; 73060; 73090; 96374; 96375; 99284; J2270; J2405; J3010

== ENCOUNTER → 2020-12-18 | Outpatient (CLI) | payer MEDICARE, MEDICAID ==
--- NOTE | 2020-12-19 15:43 | REP ---
INDICATION: UNSPECIFIED DISLOCATION OF LEFT SHOULDER JOINT. COMPARISON: 12/10/2020. TECHNIQUE: Limited axillary view and AP view. FINDINGS: There is no dislocation, the humeral head is seated in the glenoid fossa. The entire glenohumeral joint could not be visualized on the axillary view due to body habitus. There is subacromial spurring. There appears to be a Hill Sachs deformity of the superolateral humeral head. IMPRESSION: No current dislocation. Hill-Sachs deformity. <Electronically signed by Dion Rueda > 12/19/20 [id number]
== END ==
LOC: M SOG 10:36
PROVIDERS: ATTEND Orthopaedic Surgery Sports Medicine
DX: S43.005A Unspecified dislocation of left shoulder joint, initial encounter (principal); X58.XXXA Exposure to other specified factors, initial encounter; Y92.9 Unspecified place or not applicable

== ENCOUNTER → 2021-01-31 | Outpatient (CLI) | payer MEDICARE, MEDICAID ==
--- NOTE | 2021-01-31 14:02 | REP ---
INDICATION: LT SHOULDER DISLOCATION. COMPARISON: 12/18/2020 TECHNIQUE: Neutral, internal rotation, external rotation, axillary and Y-view FINDINGS: Cortical irregularity at the acromioclavicular joint as well as blunting and irregularity to the glenoid rim and evidence for prior Hill-Sachs deformity to the humeral head suggests sequelae of old injury. No obvious acute fracture or dislocation. Subacromial space is within normal limits. IMPRESSION: Presumed posttraumatic early arthritic changes. No obvious acute process. <Electronically signed by Gustabo Ash > 01/31/21 [id number]
== END ==
LOC: M SOG 11:15
PROVIDERS: ATTEND Orthopaedic Surgery Sports Medicine
DX: S43.085D Other dislocation of left shoulder joint, subsequent encounter (principal)

== ENCOUNTER 2022-02-02 15:27 | Observation (INO) | payer MEDICARE, MEDICAID ==
[~2022-02-02] VITALS: Ht 160 cm; Wt 159.7 kg
[~2022-02-02 15:27] MED LIST changes: +OMEP-173 PO; -OMEP-218 PO
[2022-02-02] MEDS ORDERED: ONDANSETRON 4MG 2ML VIAL IV ONE (15:50)
[2022-02-02] MEDS ORDERED: NS 500 ML IV ONE (15:50)
[2022-02-02] MEDS ORDERED: ACETAMINOPHEN TAB 650MG DOSE (2X325MG) PO ONE (15:50)
[2022-02-02 16:45] LABS: BASO % 0.8 % (0.0-1.0); EOS % 0.5 % (0.0-3.0); HEMATOCRIT 37.8 % (36.0-47.0); HEMOGLOBIN 11.8 g/dl (12.0-15.5); LYMPH # 0.2 10^3/uL (1.5-5.0); LYMPH % 5.6 % (24.0-44.0); MEAN CORPUSCULAR HEMOGLOBIN 26.3 pg (27.0-33.0); MEAN CORPUSCULAR HGB CONC 31.2 g/dl (32.0-36.5); MEAN CORPUSCULAR VOLUME 84.2 fl (80.0-96.0); MONO # 0.4 10^3/uL (0.0-0.8); MONO % 9.9 % (2.0-8.0); NEUTROPHILS # 3.1 10^3/uL (1.5-8.5); NEUTROPHILS % 82.9 % (36.0-66.0); RED BLOOD COUNT 4.49 10^6/uL (4.00-5.40); WHITE BLOOD COUNT 3.7 10^3/uL (4.0-10.0)
[2022-02-02 16:59] LABS: RSV AMPLIFICATION NEGATIVE (NEGATIVE)
[2022-02-02 17:28] LABS: ALBUMIN 3.3 GM/DL (3.2-5.2); ALT/SGPT 35 U/L (12-78); BILIRUBIN,DIRECT < 0.1 MG/DL (0.0-0.2); BILIRUBIN,TOTAL 0.3 MG/DL (0.2-1.0); BLOOD UREA NITROGEN 5 MG/DL (7-18); CALCIUM LEVEL 8.6 MG/DL (8.5-10.1); CARBON DIOXIDE LEVEL 24 MEQ/L (21-32); CHLORIDE LEVEL 103 MEQ/L (98-107); CREATININE FOR GFR 0.64 MG/DL (0.55-1.30); FREE T4 0.95 NG/DL (0.76-1.46); GLOMERULAR FILTRATION RATE > 60.0 (>58); GLUCOSE, FASTING 108 MG/DL (70-100); LIPASE 74 U/L (73-393); POTASSIUM SERUM 4.8 MEQ/L (3.5-5.1); SODIUM LEVEL 133 MEQ/L (136-145); TOTAL PROTEIN 7.5 GM/DL (6.4-8.2)
[2022-02-02 17:32] VITALS: O2SAT 97
[2022-02-02] MEDS ORDERED: D-MA500C2 PO (18:25)
[2022-02-02] MEDS ORDERED: HOME MED LIST COMPLETE! XX SCH (18:30)
[2022-02-02] MEDS: NS 1,000 ML IV SCH (18:49)
[2022-02-02] MEDS ORDERED: **hydrALAZINE** 10 MG TAB PO PRN (19:25)
[2022-02-02 20:31] LABS: INR 1.01; PROTHROMBIN TIME 13.7 SECONDS (12.7-14.5)
[2022-02-02 20:32] LABS: PARTIAL THROMBOPLASTIN TIME 28.8 SECONDS (25.9-37.0)
[2022-02-02 20:35] LABS: D-DIMER QUANT 759.6 ng/ml (<500)
[2022-02-02 20:58] LABS: ALBUMIN 3.4 GM/DL (3.2-5.2); ALT/SGPT 34 U/L (12-78); BILIRUBIN,DIRECT < 0.1 MG/DL (0.0-0.2); BILIRUBIN,TOTAL 0.3 MG/DL (0.2-1.0); C REACTIVE PROTEIN QUANTITATIV 1.41 MG/DL (0.00-0.30); FERRITIN 15 NG/ML (8-252); LDH LACTATE DEHYDROGENASE 183 U/L (84-246); TOTAL PROTEIN 6.9 GM/DL (6.4-8.2)
[2022-02-02] MEDS: ACETAMINOPHEN TAB 650MG DOSE (2X325MG) PO PRN (21:00)
[2022-02-02] MEDS: ONDANSETRON 4MG 2ML VIAL IV PRN (21:00)
[2022-02-02] MEDS: DULoxetine 30MG CAPSULE (CYMBALTA) PO SCH (21:29)
[2022-02-02] MEDS: ENOXAPARIN 40MG/0.4ML SYRINGE (J1650 PER 10MG) SC SCH (21:29)
[2022-02-02 21:45] VITALS: BP 139/76
[2022-02-03] MEDS: NS 1,000 ML IV SCH (02:04)
[2022-02-03] MEDS: ACETAMINOPHEN TAB 650MG DOSE (2X325MG) PO PRN ×5 (02:08→20:51)
[2022-02-03 06:00] VITALS: BP 96/70
[2022-02-03 06:09] LABS: HEMATOCRIT 31.4 % (36.0-47.0); HEMOGLOBIN 10.1 g/dl (12.0-15.5); MEAN CORPUSCULAR HEMOGLOBIN 27.4 pg (27.0-33.0); MEAN CORPUSCULAR HGB CONC 32.2 g/dl (32.0-36.5); MEAN CORPUSCULAR VOLUME 85.3 fl (80.0-96.0); PLATELET COUNT, AUTOMATED 243 10^3/uL (150-450); RED BLOOD COUNT 3.68 10^6/uL (4.00-5.40); WHITE BLOOD COUNT 2.9 10^3/uL (4.0-10.0)
[2022-02-03 06:42] LABS: ALBUMIN 2.9 GM/DL (3.2-5.2); ALT/SGPT 31 U/L (12-78); BILIRUBIN,TOTAL 0.2 MG/DL (0.2-1.0); BLOOD UREA NITROGEN 6 MG/DL (7-18); CALCIUM LEVEL 8.2 MG/DL (8.5-10.1); CARBON DIOXIDE LEVEL 24 MEQ/L (21-32); CHLORIDE LEVEL 108 MEQ/L (98-107); CREATININE FOR GFR 0.55 MG/DL (0.55-1.30); GLOMERULAR FILTRATION RATE > 60.0 (>58); GLUCOSE, FASTING 115 MG/DL (70-100); MAGNESIUM LEVEL 1.8 MG/DL (1.8-2.4); POTASSIUM SERUM 3.6 MEQ/L (3.5-5.1); SODIUM LEVEL 138 MEQ/L (136-145); TOTAL PROTEIN 6.1 GM/DL (6.4-8.2)
[2022-02-03] MEDS: ONDANSETRON 4MG 2ML VIAL IV PRN ×2 (08:04→17:20)
[2022-02-03] MEDS ORDERED: GUAI20TA PO (10:16)
[2022-02-03] MEDS ORDERED: ACET1TAB55 PO (10:16)
[2022-02-03 14:00] VITALS: BP 121/78
[2022-02-03] MEDS: guaiFENesin 200 MG TAB PO PRN (20:50)
[2022-02-03] MEDS: DULoxetine 30MG CAPSULE (CYMBALTA) PO SCH (20:51)
[2022-02-03] MEDS: ENOXAPARIN 40MG/0.4ML SYRINGE (J1650 PER 10MG) SC SCH (20:51)
[2022-02-03 22:00] VITALS: BP 145/72
[2022-02-04] MEDS: ACETAMINOPHEN TAB 650MG DOSE (2X325MG) PO PRN (04:22)
[2022-02-04 05:57] LABS: BASO % 0.6 % (0.0-1.0); EOS # 0.1 10^3/uL (0.0-0.5); EOS % 1.4 % (0.0-3.0); HEMATOCRIT 34.9 % (36.0-47.0); HEMOGLOBIN 10.7 g/dl (12.0-15.5); LYMPH # 1.2 10^3/uL (1.5-5.0); LYMPH % 34.2 % (24.0-44.0); MEAN CORPUSCULAR HEMOGLOBIN 26.2 pg (27.0-33.0); MEAN CORPUSCULAR HGB CONC 30.7 g/dl (32.0-36.5); MEAN CORPUSCULAR VOLUME 85.5 fl (80.0-96.0); MONO # 0.4 10^3/uL (0.0-0.8); MONO % 11.9 % (2.0-8.0); NEUTROPHILS # 1.8 10^3/uL (1.5-8.5); NEUTROPHILS % 51.6 % (36.0-66.0); PLATELET COUNT, AUTOMATED 235 10^3/uL (150-450); RED BLOOD COUNT 4.08 10^6/uL (4.00-5.40); WHITE BLOOD COUNT 3.5 10^3/uL (4.0-10.0)
[2022-02-04 06:42] LABS: ALBUMIN 2.9 GM/DL (3.2-5.2); ALT/SGPT 40 U/L (12-78); BILIRUBIN,TOTAL 0.2 MG/DL (0.2-1.0); BLOOD UREA NITROGEN 8 MG/DL (7-18); CALCIUM LEVEL 8.2 MG/DL (8.5-10.1); CARBON DIOXIDE LEVEL 24 MEQ/L (21-32); CHLORIDE LEVEL 106 MEQ/L (98-107); CREATININE FOR GFR 0.56 MG/DL (0.55-1.30); GLOMERULAR FILTRATION RATE > 60.0 (>58); GLUCOSE, FASTING 107 MG/DL (70-100); MAGNESIUM LEVEL 1.7 MG/DL (1.8-2.4); POTASSIUM SERUM 3.5 MEQ/L (3.5-5.1); SODIUM LEVEL 137 MEQ/L (136-145); TOTAL PROTEIN 6.6 GM/DL (6.4-8.2)
[2022-02-04] MEDS: guaiFENesin 200 MG TAB PO PRN (07:45)
[2022-02-04] MEDS: ONDANSETRON 4MG 2ML VIAL IV PRN (07:46)
[2022-02-04] MEDS ORDERED: MAG SULF 1GM/100ML (MAG RUN) 1 GM in IV 1 EA IV ONE (09:00)
[2022-02-04] MEDS ORDERED: ONDA4TAB6 PO (10:03)
== END 2022-02-04 11:16 | disposition home or self-care (01) ==
LOC: M ED 15:27 → M ED INP 15:28 → M MS5PR 21:40
PROVIDERS: ADMIT Family Medicine; ATTEND Family Medicine
DX: U07.1 COVID-19 (principal); R11.2 Nausea with vomiting, unspecified; R00.0 Tachycardia, unspecified; R50.9 Fever, unspecified; R19.7 Diarrhea, unspecified; E66.01 Morbid (severe) obesity due to excess calories; R42 Dizziness and giddiness; F41.9 Anxiety disorder, unspecified; F32.A Depression, unspecified; Z88.8 Allergy status to other drugs, medicaments and biological substances; Z91.018 Allergy to other foods
CPT/HCPCS: 36415; 71045; 80048; 80053; 80076; 81000; 81015; 82550; 82728; 83605; 83615; 83690; 83735; 84439; 84443; 84484; 85025; 85027; 85379; 85384; 85610; 85730; 86140; 87040; 87631; 93005; 93041; 94760; 96361; 96372; 96374; 96375; 96376; 97161; 97530; 99285; G0378; J1650; J2405; J3475

== ENCOUNTER 2022-02-04 11:27 | Outpatient (CLI) | payer MEDICARE, MEDICAID ==
[~2022-02-04] VITALS: Ht 160 cm; Wt 62.4 kg
[~2022-02-04 11:27] MED LIST changes: +ACETAMINOPHEN TAB 650MG DOSE (2X325MG) PO PRN; +ALBUTEROL 90 MCG/ACT 8GM HFA INHALER INH PRN; +ALBUTEROL SULFATE 2.5 MG/0.5 ML INH NEB SOLN INH PRN; +D-MA500C2 PO; +EPINEPHrine INJ 1 MG/ML 1ML AMP IM PRN; +GUAI20TA PO; +NS 1,000 ML IV SCH; +ONDA4TAB6 PO; +diphenhydrAMINE 50MG/ML VIAL (J1200) IV PRN; +methylPREDNISolone 125MG 2ML VIAL IV PRN
[2022-02-04] MEDS ORDERED: BEBTELOVIMAB 175MG 2ML VIAL (EUA) IV ONE (12:00)
[2022-02-04 12:29] VITALS: BP 138/70
[2022-02-04 12:30] VITALS: BP 138/70
[2022-02-04 13:48] VITALS: BP 146/76
== END 2022-02-04 14:15 | disposition home or self-care (01) ==
LOC: M OPCLI4 11:27 → M MS5PR 11:28 → M OPCLI4 14:15
PROVIDERS: ATTEND Internal Medicine Nephrology
DX: U07.1 COVID-19 (principal); Z88.1 Allergy status to other antibiotic agents; Z91.02 Food additives allergy status

== ENCOUNTER → 2023-03-04 | Outpatient (REF) | payer MEDICARE ==
[~2023-03-04] MED LIST changes: -ACETAMINOPHEN TAB 650MG DOSE (2X325MG) PO PRN; -ALBUTEROL 90 MCG/ACT 8GM HFA INHALER INH PRN; -ALBUTEROL SULFATE 2.5 MG/0.5 ML INH NEB SOLN INH PRN; -EPINEPHrine INJ 1 MG/ML 1ML AMP IM PRN; -NS 1,000 ML IV SCH; -PAXI40TA10 PO; +PAXI40TA12 PO; -diphenhydrAMINE 50MG/ML VIAL (J1200) IV PRN; -methylPREDNISolone 125MG 2ML VIAL IV PRN
== END ==
LOC: M LAB REF 12:36
PROVIDERS: ATTEND Nurse Practitioner Family
DX: R30.0 Dysuria (principal)

== ENCOUNTER 2024-02-04 01:20 | Emergency (ER) | payer MEDICARE ==
[~2024-02-04] VITALS: Ht 160 cm; Wt 148.2 kg
[~2024-02-04 01:20] MED LIST changes: +ONDA-282 PO; -ONDA4TAB6 PO
[2024-02-04 03:43] LABS: BASO % 0.3 % (0.0-1.0); EOS # 0.1 10^3/uL (0.0-0.5); EOS % 0.7 % (0.0-3.0); HEMATOCRIT 28.7 % (36.0-47.0); HEMOGLOBIN 8.3 g/dl (12.0-15.5); LYMPH # 0.9 10^3/uL (1.5-5.0); LYMPH % 9.9 % (24.0-44.0); MEAN CORPUSCULAR HEMOGLOBIN 20.2 pg (27.0-33.0); MEAN CORPUSCULAR HGB CONC 28.9 g/dl (32.0-36.5); MONO # 0.6 10^3/uL (0.0-0.8); MONO % 6.3 % (2.0-8.0); NEUTROPHILS # 7.3 10^3/uL (1.5-8.5); NEUTROPHILS % 82.3 % (36.0-66.0); PLATELET COUNT, AUTOMATED 411 10^3/uL (150-450); WHITE BLOOD COUNT 8.9 10^3/uL (4.0-10.0)
[2024-02-04 04:04] LABS: LIPASE 27 U/L (12-53)
[2024-02-04 04:07] LABS: ALBUMIN 3.3 G/DL (3.2-5.2); ALKALINE PHOSPHATASE 127 U/L (46-116); ALT/SGPT 27 U/L (7.0-40); AST/SGOT 19 U/L (<34); BILIRUBIN,DIRECT 0.1 MG/DL (<0.4); BILIRUBIN,TOTAL 0.3 MG/DL (0.3-1.2); BLOOD UREA NITROGEN 11 MG/DL (9-23); CALCIUM LEVEL 8.8 MG/DL (8.5-10.1); CARBON DIOXIDE LEVEL 23 MMOL/L (20-31); CHLORIDE LEVEL 105 MMOL/L (98-107); CREATININE FOR GFR 0.57 MG/DL (0.55-1.30); GLOMERULAR FILTRATION RATE > 60.0 (>58); GLUCOSE, FASTING 115 MG/DL (60-100); POTASSIUM SERUM 3.8 MMOL/L (3.5-5.1); SODIUM LEVEL 135 MMOL/L (136-145); TOTAL PROTEIN 7.2 G/DL (5.7-8.2)
[2024-02-04 04:21] LABS: PROCALCITONIN 0.49 ng/ml
[2024-02-04] MEDS: IBUPROFEN 600MG TAB PO ONE (04:22)
[2024-02-04] MEDS: NS 1,000 ML IV ONE ×2 (04:22→08:04)
[2024-02-04] MEDS: ACETAMINOPHEN TAB 650MG DOSE (2X325MG) PO ONE (04:22)
[2024-02-04] MEDS: cefTRIAXone SOD 2 GM in D5W MINI-BAG PLUS 50 ML IV ONE (05:16)
[2024-02-04] MEDS ORDERED: CEPH500C PO (07:05)
[2024-02-04 09:42] VITALS: BP 143/71; TEMP 98; O2SAT 98
== END 2024-02-04 09:48 | disposition home or self-care (01) ==
LOC: M ED 01:20
DX: N30.01 Acute cystitis with hematuria (principal); K80.20 Calculus of gallbladder without cholecystitis without obstruction; F12.10 Cannabis abuse, uncomplicated; Z98.84 Bariatric surgery status; Z88.1 Allergy status to other antibiotic agents; Z88.8 Allergy status to other drugs, medicaments and biological substances; Z91.048 Other nonmedicinal substance allergy status; Z79.2 Long term (current) use of antibiotics; Z79.899 Other long term (current) drug therapy
CPT/HCPCS: 74176; 80048; 80076; 81001; 83605; 83690; 84145; 85025; 87040; 87088; 87186; 93041; 96361; 96365; 96366; 99284; J0696

== ENCOUNTER → 2024-11-24 | Outpatient (CLI) | payer MEDICARE ==
[~2024-11-24] MED LIST changes: +CEFU50TA PO; -ENEMENE6 PR; +SODI133E28 PR
[2024-11-24 15:52] LABS: BASO # 0.0 10^3/uL (0.0-0.2); BASO % 0.5 % (0.0-1.0); EOS # 0.2 10^3/uL (0.0-0.5); EOS % 2.1 % (0.0-3.0); LYMPH # 2.3 10^3/uL (1.5-5.0); LYMPH % 29.5 % (24.0-44.0); MONO # 0.4 10^3/uL (0.0-0.8); MONO % 5.6 % (2.0-8.0); NEUTROPHILS # 4.8 10^3/uL (1.5-8.5); NEUTROPHILS % 61.9 % (36.0-66.0); PLATELET COUNT, AUTOMATED 417 10^3/uL (150-450)
[2024-11-24 15:54] LABS: IRON (FE) 15.0 UG/DL (50-170); PERCENT SATURATION 3.7 % (13.2-45.0)
== END ==
LOC: M PLALAB 13:42
PROVIDERS: ATTEND Family Medicine
DX: D64.9 Anemia, unspecified (principal)

== ENCOUNTER → 2024-11-28 | Outpatient (REF) | payer MEDICARE ==
[2024-11-28 14:02] LABS: APPEARANCE, URINE MANUAL CLEAR (CLEAR); COLOR, URINE MANUAL YELLOW (YELLOW); PH,URINE MAN 5.0 UNITS (5.0 - 7.0); SPECIFIC GRAVITY,URINE MANUAL 1.020 (1.002-1.035)
[2024-11-28 14:03] LABS: BILIRUBIN, URINE MANUAL NEGATIVE (NEGATIVE); BLOOD URINE MANUAL NEGATIVE (NEGATIVE); GLUCOSE, URINE (UA) MANUAL NEGATIVE (NEGATIVE); KETONE, URINE MANUAL NEGATIVE (NEGATIVE); LEUKOCYTE ESTERASE, URINE MAN NEGATIVE (NEGATIVE); NITRITE, URINE MANUAL NEGATIVE (NEGATIVE); PROTEIN, URINE MANUAL TRACE mg/dL (NEGATIVE); UROBILINOGEN, URINE MANUAL NORMAL (NORMAL)
[2024-11-28 14:08] LABS: BACTERIA, URINE NONE SEEN; HYALINE CAST, URINE NONE SEEN /lpf (0-1); RBC, URINE NONE SEEN /hpf (0-3); SQUAMOUS EPITHELIAL CELL URINE SMALL AMOUNT /hpf (SMALL AMT); WBC, URINE NONE SEEN /hpf (0-3)
== END ==
LOC: M LAB REF 12:57
PROVIDERS: ATTEND Family Medicine
DX: R30.0 Dysuria (principal)

== ENCOUNTER → 2025-03-27 | Outpatient (REF) | payer MEDICARE | LOC: M LAB REF 11:57 | PROVIDERS: ATTEND Student in an Organized Health Care Education/Training Program | DX: R30.0 Dysuria (principal) ==